=== PATIENT | female | born 1975 | race Caucasian/White ===

== ENCOUNTER → 2020-05-24 | Day surgery (SDC) | payer MEDICARE, MEDICAID ==
[~2020-05-24] MED LIST: ADVAIR 500-501 EACH INH; BACLOFEN 10MG T10 MG PO; ENOXAPARIN120 MG/0.1 SUBQ; FENOFIBRATE200 MG PO; FLONASE 0.05%50 MCG NARES; LORCET 5-325 M1 EACH PO; METFORMIN HCL500 M3 PO; NASONEX17 GM NASAL; NEURONTIN 300M300 M2 PO; SINGULAIR 10 MG10 M1 PO; TRIAMTERENE/HCT1 CA1 PO; TUMS300 MG PO; VITAMIN B122500 MC1 PO; VITAMIN D250 MC1 PO; XARELTO20 MG PO; ZYRTEC10 M2 PO; [UNRECOGNIZED DRUG - OTHER] PO
[2020-05-24 08:39] LABS: CALCIUM 8.7 mg/dL (8.5-10.1); CREATININE 1.3 mg/dL (0.6-1.3); POTASSIUM 3.9 mmol/L (3.5-5.1)
[2020-05-24 08:42] LABS: PROTIME 10.2 Seconds (9.20-11.50)
--- NOTE | 2020-05-24 10:14 | EKG ---
[place] [address] ELECTROCARDIOGRAM REPORT Name: SCHROEDERBAR Yamile Room: [facility]#: [id number] Admission: 05/24/20 Attend Phys: Jarad Melo DO Discharge: Date of : 73 Date of Service: 05/24/20 0739 Report #: [id number] THIS REPORT FOR: //name// [facility] Test Date: 2020-05-24 Test Time: 07:39:08 Pat Name: BAR SCHROEDER Department: Room: Gender: F [employer]: : 1975 Requested By: Jarad Melo Order Number: [id number] Reading MD: Emmanuel Love Measurements Intervals [place] Rate: 75 P: 51 [place]: 194 QRS: 66 QRSD: 98 T: 94 QT: 408 QTc: 456 Interpretive Statements Sinus rhythm Low voltage, precordial leads Nonspecific T abnormalities, lateral leads No previous ECG available for comparison Electronically Signed On 05-24-2020 10:14:21 CDT by Emmanuel Love [email or web address] <ELECTRONICALLY SIGNED> By: Emmanuel Love MD, [facility] 05/24/20 1014 8 8 Emmanuel oLve MD, FACC /EPI
--- NOTE | 2020-05-29 07:22 | OP ---
[address] [address] OPERATIVE REPORT Name: BAR SCHROEDER Room: [facility]#: [id number] Admission: 05/24/20 Attend Phys: Jarad Melo DO Discharge: Date of : 73 Report #: [id number] THIS REPORT FOR: //name// cc: Paula Salcido MD, Veronica A. MD ~ THIS REPORT FOR: //name// CC: Jarad Salcido DATE OF SERVICE: 05/24/2020 PREOPERATIVE DIAGNOSIS: Right carpal tunnel syndrome. POSTOPERATIVE DIAGNOSIS: Right carpal tunnel syndrome. SURGERY PERFORMED: Right carpal tunnel release. SURGEON: Jarad Melo DO COBOL PROGRAMMER: 1. Yazmin An DO 2. Emiliano Doss DO. ANESTHESIA: General anesthetic. The patient did receive Ancef 2 grams IV piggyback preoperatively. No specimens, complications or drains. Estimated blood loss, again nil. The patient's gross findings: EMG correlated with the right carpal tunnel. Intraoperative findings were severely thickened right transverse ligament of the carpal tunnel. The nerve was flattened beneath that. No other findings were noted in the carpal tunnel. DESCRIPTION OF PROCEDURE: The patient was taken to the operating room, placed on the table, given the benefit of general anesthetic. She had a well-padded tourniquet placed high on the right upper extremity. She did undergo chlorhexidine prep and sterile draping for right arm surgery. Timeout was called and verified by everyone in the room for the right carpal tunnel. At this point time, via Esmarch exsanguination of the extremity, we inflated the tourniquet to 250 mmHg, and under loupe magnification, a longitudinal incision was made from the distal flexor crease of the wrist extending distally in line with palmaris longus tendon to the fourth webspace with a 15 blade scalpel through skin and subcutaneous tissues. Sharp dissection carried down to transverse ligament and then initially I incised it to open it up and then proximally and distally was released with scissors technique[place] [id number] OPERATIVE REPORT Name: BAR SCHROEDER Room: [facility].#: [id number] Admission: 05/24/20 Attend Phys: Jarad Melo DO Discharge: Date of : 73 Report #: [id number] carpal tunnel and no other findings were noted. I copiously irrigated with normal saline. Suture of 3-0 nylon was used to close the skin. Xeroform, 4 x 4, Kerlix ____ dressing was applied. She was transferred off the table and taken to recovery in stable condition. I attest I was present for all critical aspects of the surgery, the needle, instrument, and sponge counts correct. <ELECTRONICALLY SIGNED> By: Jarad Melo DO 05/29/20 0722 0940 DO lisa Redmond
== END | disposition home or self-care (01) ==
LOC: M.SUR 07:12
PROVIDERS: ATTEND Orthopaedic Surgery
DX: G56.01 Carpal tunnel syndrome, right upper limb (principal); E11.9 Type 2 diabetes mellitus without complications; I10 Essential (primary) hypertension; F32.9 Major depressive disorder, single episode, unspecified; F41.9 Anxiety disorder, unspecified; E78.5 Hyperlipidemia, unspecified; Z90.710 Acquired absence of both cervix and uterus; Z98.890 Other specified postprocedural states; Z79.899 Other long term (current) drug therapy; Z88.8 Allergy status to other drugs, medicaments and biological substances